=== PATIENT | male | born 1955 | race African-American/Black ===

== ENCOUNTER 2016-04-03 08:16 | Outpatient (CLI) | payer OTHER ==
[2016-04-03 09:34] LABS: PLATELET COUNT 368 K/uL (142-355)
[2016-04-03 10:11] LABS: POTASSIUM 3.9 mmol/L (3.6-5.2); SODIUM 137 mmol/L (136-145)
== END 2016-04-03 19:42 | disposition home or self-care (01) ==
LOC: LABW 08:16
PROVIDERS: Family Medicine
DX: M79.605 Pain in left leg (principal); E11.9 Type 2 diabetes mellitus without complications; I10 Essential (primary) hypertension; E78.1 Pure hyperglyceridemia; E55.9 Vitamin D deficiency, unspecified
CPT/HCPCS: 36415; 80053; 80061; 81000; 82306; 83036; 84439; 84443; 85027

== ENCOUNTER 2016-11-20 08:32 | Outpatient (CLI) | payer OTHER ==
[2016-11-20 08:50] LABS: PLATELET COUNT 296 K/uL (142-355)
[2016-11-20 09:21] LABS: POTASSIUM 3.9 mmol/L (3.6-5.2); SODIUM 134 mmol/L (136-145)
== END 2016-11-20 09:35 | disposition home or self-care (01) ==
LOC: LABW 08:32
PROVIDERS: Family Medicine
DX: E11.9 Type 2 diabetes mellitus without complications (principal); M10.9 Gout, unspecified; I10 Essential (primary) hypertension; N52.8 Other male erectile dysfunction
CPT/HCPCS: 36415; 80053; 80061; 81000; 82306; 83036; 83735; 84153; 84550; 85027

== ENCOUNTER 2016-12-03 16:10 | Outpatient (CLI) | payer OTHER | END 2016-12-03 17:10 | disposition home or self-care (01) | LOC: LAB 16:10 | DX: E11.9 Type 2 diabetes mellitus without complications (principal); I10 Essential (primary) hypertension; D64.89 Other specified anemias | CPT/HCPCS: 82728; 83540; 83550 ==

== ENCOUNTER 2017-01-03 11:09 | Outpatient (CLI) | payer OTHER ==
[2017-01-03 11:30] LABS: PLATELET COUNT 320 K/uL (142-355)
[2017-01-03 12:08] LABS: POTASSIUM 4.2 mmol/L (3.6-5.2); SODIUM 136 mmol/L (136-145)
== END 2017-01-03 12:10 | disposition home or self-care (01) ==
LOC: LABW 11:09
PROVIDERS: Family Medicine
DX: M54.2 Cervicalgia (principal); R22.1 Localized swelling, mass and lump, neck; K21.9 Gastro-esophageal reflux disease without esophagitis; R63.0 Anorexia
CPT/HCPCS: 36415; 80053; 84439; 84443; 84481; 85027

== ENCOUNTER 2017-01-16 10:53 | Outpatient (CLI) | payer OTHER | END 2017-01-16 12:00 | disposition home or self-care (01) | LOC: US 10:53 | DX: M54.2 Cervicalgia (principal); R22.1 Localized swelling, mass and lump, neck; K21.9 Gastro-esophageal reflux disease without esophagitis; R63.0 Anorexia ==

== ENCOUNTER 2017-02-04 08:06 | Outpatient (CLI) | payer OTHER | END 2017-02-04 10:10 | disposition home or self-care (01) | LOC: NM 08:06 | DX: M54.2 Cervicalgia (principal); R22.1 Localized swelling, mass and lump, neck; R63.0 Anorexia; R63.4 Abnormal weight loss; E04.8 Other specified nontoxic goiter | CPT/HCPCS: A9516 ==

== ENCOUNTER 2017-06-28 09:08 | Outpatient (CLI) | payer OTHER | END 2017-06-28 19:13 | disposition home or self-care (01) | LOC: US 09:08 | DX: R42 Dizziness and giddiness (principal) ==

== ENCOUNTER 2017-09-03 07:41 | Outpatient (CLI) | payer OTHER | END 2017-09-03 23:10 | disposition home or self-care (01) | LOC: MRI 07:41 | DX: N28.89 Other specified disorders of kidney and ureter (principal) | CPT/HCPCS: 36415; 82565; 84520; A9576 ==

== ENCOUNTER 2020-04-23 10:21 | Outpatient (CLI) | payer OTHER | END 2020-04-23 19:06 | disposition home or self-care (01) | LOC: LABW 10:21 | PROVIDERS: ATTEND Family Medicine | DX: E11.65 Type 2 diabetes mellitus with hyperglycemia (principal) | CPT/HCPCS: 82043 ==

== ENCOUNTER 2020-05-03 14:55 | Outpatient (CLI) | payer OTHER | END 2020-05-03 20:17 | disposition home or self-care (01) | LOC: INF 14:55 | PROVIDERS: ATTEND Internal Medicine | DX: Z23 Encounter for immunization (principal) | CPT/HCPCS: 96372 ==

== ENCOUNTER 2020-05-31 09:19 | Outpatient (CLI) | payer OTHER | END 2020-05-31 20:04 | disposition home or self-care (01) | LOC: INF 09:19 | PROVIDERS: ATTEND Internal Medicine | DX: Z23 Encounter for immunization (principal) | CPT/HCPCS: 96372 ==

== ENCOUNTER 2022-08-03 11:49 | Outpatient (CLI) | payer OTHER | END 2022-08-03 19:01 | disposition home or self-care (01) | LOC: RAD 11:49 | PROVIDERS: ATTEND Family Medicine | DX: M54.59 Other low back pain (principal); M25.551 Pain in right hip; M25.561 Pain in right knee; M79.651 Pain in right thigh ==